=== PATIENT | female | born 1950 | race Caucasian/White ===

== ENCOUNTER 2018-09-17 20:39 | Inpatient (IN) | payer MEDICARE, OTHER ==
[~2018-09-17] VITALS: Ht 157.5 cm; Wt 117.5 kg
--- NOTE | 2018-09-17 20:50 | NUR ---
BIB [facility] AAOX4. NAD NOTED AT THE TIME, BREATHING EVEN AND UNLABORED. C/O CHEST PAIN ON LEFT REPORTED THAT SHE FELT RADIATION ON HER JAW, 3/10. REPORTS OF FEELING LIGHTHEADED AND DIZZY. TINGLING IN THE FINGERS AND SOB AT THE TIME OF ONSET. RA REPORTS THAT PT'S HR WAS 220'S GIVEN ADENOSINE 6MG AND ANOTHER ADENOSINE 12MG. REPORTS NOTING DROP BY 20 PTS BUT WENT BACK UP TO 220'S. PT WAS RECEIVED HOOKED ON MONITOR AND HR IN THE 160'S. MD AT BEDSIDE. EKG DONE WITH RESULT OF SINUS TACH IN 110'S. WILL CNTINUE TO MONITOR
[2018-09-17] MEDS ORDERED: IV NS 0.9% 500 ML BAG IV ONE (21:00)
--- NOTE | 2018-09-17 21:00 | NUR ---
LAB AT BEDSIDE.
[2018-09-17 21:21] LABS: BASOPHILS # (AUTO) 0.1 /CMM (0.0-0.2); BASOPHILS % (AUTO) 1.5 % (0.0-2.0); EOSINOPHILS % (AUTO) 3.6 % (0.0-6.0); HEMATOCRIT 44 % (33-45); HEMOGLOBIN 14.7 g/dL (11.5-14.8); LYMPHOCYTES # (AUTO) 2.1 /CMM (0.8-4.8); LYMPHOCYTES % (AUTO) 34.9 % (20.0-44.0); MEAN CORPUSCULAR HGB CONC 34 g/dl (31.0-36.0); MEAN CORPUSCULAR VOLUME 88 fL (82-100); MONOCYTES # (AUTO) 0.3 /CMM (0.1-1.30); MONOCYTES % (AUTO) 4.9 % (2.0-12.0); NEUTROPHILS # (AUTO) 3.3 /CMM (1.8-8.9); NEUTROPHILS % (AUTO) 55.1 % (43.0-81.0); PLATELET COUNT (AUTO) 245 /CMM (150-450); RED BLOOD CELL COUNT(AUTO) 4.99 MIL/uL (4.0-5.2); WHITE BLOOD COUNT (AUTO) 5.9 K/uL (4.3-11.0)
[2018-09-17 21:29] LABS: CALCIUM, SERUM 9.1 mg/dL (8.5-10.1); CARBON DIOXIDE 24 mmol/L (21-32); CHLORIDE 105 mmol/L (98-107); GLUCOSE 152 mg/dL (74-106); POTASSIUM 3.8 mmol/L (3.5-5.1); SODIUM SERUM 142 mmol/L (136-145); UREA NITROGEN, BLOOD 13 mg/dL (7-18)
[2018-09-17 21:39] LABS: D-DIMER 0.33 mg/L(FEU (0.17-0.50)
[2018-09-17 21:41] LABS: ALANINE AMINOTRANSFERASE 23 U/L (12-78); ALBUMIN 3.9 g/dL (3.4-5.0); ALKALINE PHOSPHATASE 67 U/L (46-116); ASPARTATE AMINOTRANSFERASE 17 U/L (15-37); B-TYPE NATRIURETIC PEPTIDE 75 PG/ML (0-125); BILIRUBIN,TOTAL 0.4 mg/dL (0.2-1.0)
--- NOTE | 2018-09-17 21:52 | NUR ---
CALLED NURSING SUP FOR TELE BED
--- NOTE | 2018-09-17 21:52 | NUR ---
pt in bed aaox4. pt is talking with her daugther at bedside
[2018-09-17] MEDS ORDERED: AZITHROMYCIN 500 MG in IV D5W 250 ML IV ONE (22:00)
[2018-09-17] MEDS ORDERED: IV NS 0.9% 1,000 ML BAG IV ONE (22:00)
[2018-09-17] MEDS ORDERED: CEFTRIAXONE 1GM BAG (ER ONLY) 1 GM/50 ML PIGGYBACK IV ONE (22:00)
[2018-09-17] MEDS ORDERED: IV NS 0.9% 1,000 ML IV PRN (22:09)
[2018-09-17] MEDS ORDERED: CEFTRIAXONE 1GM BAG (ER ONLY) 50 ML IV ONE (22:21)
[2018-09-17] MEDS ORDERED: ACETAMINOPHEN 325 MG TABLET PO PRN (22:30)
[2018-09-17] MEDS ORDERED: Z GUARD REMEDY 2 OZ OINT TP PRN (22:30)
[2018-09-17] MEDS ORDERED: HYDROCODONE/APAP 5/325MG 1 EACH TABLET PO PRN (22:30)
[2018-09-17] MEDS ORDERED: ONDANSETRON HCL/PF 4 MG/2 ML VIAL IVP PRN (22:30)
[2018-09-17] MEDS ORDERED: MAGNESIUM HYDROXIDE 30 ML UDC PO PRN (22:30)
[2018-09-17] MEDS ORDERED: MAG HYDROX/AL HYDROX/SIMETH 30 ML UDC PO PRN (22:30)
[2018-09-17] MEDS ORDERED: ZOLPIDEM TARTRATE 5 MG TABLET PO PRN (22:30)
--- NOTE | 2018-09-17 22:30 | NUR ---
LAB AT BEDSIDE FOR BLOOD CULTURE
--- NOTE | 2018-09-17 22:35 | NUR ---
ROCEPHIN 1 GM VIA IV WAS STARTED ON R AC 18G
--- NOTE | 2018-09-17 22:39 | NUR ---
PT AMBULATED TO BATHROOM WITHOUT ANY ASSISTANCE
--- NOTE | 2018-09-17 22:44 | NUR ---
BED ASSIGNMENT 304-1
--- NOTE | 2018-09-17 23:00 | NUR ---
REPORT GIVEN TO OLI SANCHEZ PT IS GOING TO ROOM 324-2 INSTEAD OF 304.
[2018-09-17] MEDS ORDERED: AZITHROMYCIN 500 MG VIAL ONE (23:01)
[2018-09-17] MEDS ORDERED: WATER FOR INJECTION,STERILE 10 ML ONE (23:03)
--- NOTE | 2018-09-17 23:10 | NUR ---
AZITHROMYCIN 500MG IV STARTED ON R AC 18G END TIME 9
--- NOTE | 2018-09-17 23:20 | NUR ---
PT BEING TRANSPORTED TO UNIT WITH ACLS PROTOCOL WITH RN AND EMT
[2018-09-17] MEDS ORDERED: ALBUTEROL FS 2.5 MG/0.5 ML VIAL.NEB NEB PRN (23:30)
[2018-09-17] MEDS ORDERED: IPRATROPIUM NEB FS 0.5 MG/2.5 ML AMPUL.NEB NEB PRN (23:30)
[2018-09-17] MEDS: AZITHROMYCIN 500 MG in IV D5W 250 ML IV ONE (23:30)
[2018-09-17] MEDS: CEFTRIAXONE 1 G in IV D5W 50 ML IV ONE (23:30)
--- NOTE | 2018-09-17 23:30 | NUR ---
PERFORATOR LOADER OPENING NOTES: RECEIVED PT ON ROOM AIR AND IS TOLERATING WELL. NO SOB NOTED. NO S/S OF DISTRESS. PT HAS IV ON R AC #18G AND IS BEING INFUSED WITH AZYTHROMYCIN AT 250ML/HR. PT TO BE PLACED ON TELE BOX. DTR AT BEDSIDE. NO CHEST PAIN. BED KEPT IN LOW, LOCKED POSITION, AND SIDE RAILS X 2UP. INFORMED PT THAT SHE HAS A CARDIO CONSULT FOR TOMORROW. WILL CONTINUE TO MONITOR PT.
--- NOTE | 2018-09-17 23:52 | NUR ---
HEALTH COMMUNICATIONS SPECIALIST NOTES: PER DIVERSIFIED CROPS FARMWORKER JEREMI MONTERROSO 1G WAS GIVEN DOWNSTAIRS IN ER. WILL NON-ADMIN TONIGHT'S DOSE.
[2018-09-18] VITALS: BP 140/74
[2018-09-18] MEDS: methylPREDNISolone SOD SUCC 125 MG/2ML VIAL IV SCH ×3 (00:04→21:22)
[2018-09-18] MEDS: CEFTRIAXONE 1 G in IV D5W 50 ML IV ONE (00:14)
[2018-09-18] MEDS: AZITHROMYCIN 500 MG in IV D5W 250 ML IV ONE (00:14)
--- NOTE | 2018-09-18 00:14 | NUR ---
BUFFER COPPER NOTES: ROCEPHIN 1G WAS GIVEN IN ER. AZITHROMAX NON-ADMIN IT IS RUNNING RIGHT NOW AT 250ML/HR AND WAS STARTED IN ER.
[2018-09-18] MEDS ORDERED: ASPI-992 PO (00:56)
[2018-09-18 02:53] LABS: BASOPHILS # (AUTO) 0.1 /CMM (0.0-0.2); EOSINOPHILS % (AUTO) 1.8 % (0.0-6.0); HEMATOCRIT 42 % (33-45); HEMOGLOBIN 13.9 g/dL (11.5-14.8); LYMPHOCYTES # (AUTO) 1.4 /CMM (0.8-4.8); LYMPHOCYTES % (AUTO) 20.1 % (20.0-44.0); MEAN CORPUSCULAR HGB CONC 34 g/dl (31.0-36.0); MEAN CORPUSCULAR VOLUME 87 fL (82-100); MONOCYTES # (AUTO) 0.2 /CMM (0.1-1.30); MONOCYTES % (AUTO) 3.3 % (2.0-12.0); NEUTROPHILS % (AUTO) 73.8 % (43.0-81.0); PLATELET COUNT (AUTO) 293 /CMM (150-450); WHITE BLOOD COUNT (AUTO) 6.8 K/uL (4.3-11.0)
[2018-09-18 03:05] LABS: CALCIUM, SERUM 8.7 mg/dL (8.5-10.1); CREATININE 0.9 mg/dL (0.6-1.3); PHOSPHORUS 2.7 mg/dL (2.5-4.9); POTASSIUM 4.6 mmol/L (3.5-5.1)
--- NOTE | 2018-09-18 03:14 | NUR ---
PT ATB ROCEPHIN AND AZITHROMYCIN WAS NOTED NON ADMIN IN EMAR BUT MEDICATION WAS GEIVEN AND STARTED IN ER. PRIOR TO PT GOING TO UNIT. UNABLE TO NAEEM ADMINISTERED ON EMAR D/T NAEEM NON ADMIN ON UNIT BY RN.
[2018-09-18 03:15] LABS: THYROID STIMULATING HORMONE 1.528 uIU/mL (0.358-3.74)
--- NOTE | 2018-09-18 03:46 | NUR ---
EMERGENCY DEPARTMENT RN NOTES: INFORMED DR. MONIKA Fang ABOUT REPEAT LACTIC ACID OF 2.0 ; NO NEW ORDERS AT THIS TIME.
[2018-09-18 04:00] VITALS: BP 151/80
--- NOTE | 2018-09-18 06:33 | NUR ---
ENRICHMENT DIRECTOR CLOSING NOTES: ALL NEEDS WERE ATTENDED AND ANTICIPATED FOR. PT ON ROOM AIR AND TOLERATING WELL. NO SOB NOTED. NO S/S OF DISTRESS. PT REMAINS IN BED AND IS SITTING UP. PT ON TELE BOX AND READING SHOWS SR 70S. PT HAS IV ON R AC #18G AND IS BEING INFUSED WITH IV NS AT 100ML/HR. BED KEPT IN LOW, LOCKED POSITION, AND SIDE RAILS X 2UP. WILL ENDORSE TO AM NURSE FOR TOMY.
--- NOTE | 2018-09-18 07:20 | NUR ---
STITCH WELDER OPENING NOTE RECEIVED PT IN BED, ALERT AND ORIENTED X4. DENIES CHEST PAIN, SOB, N/V, BREATHING IS EVEN AND UNLABORED ON ROOM AIR. NO ACUTE DISTRESS NOTED, PT IS ON MECHANICAL INSULATOR WITH SINUS RHYTHM, HR 78 AT THIS TIME. RIGHT AC #18G IS INFUSING NS @ 100ML/HR WITHOUT REDNESS OR SWELLING. ALL NEEDS ATTENDED TO. BED IS LOCKED AND IN LOWEST POSITION, SIDE RAILS UP X2, CALL LIGHT AND POSSESSIONS WITHIN REACH.
[2018-09-18 08:00] VITALS: BP 146/72
[2018-09-18] MEDS ORDERED: LANS30CA54 PO (08:13)
[2018-09-18] MEDS: ATORVASTATIN 10 MG TABLET PO SCH (09:00)
[2018-09-18] MEDS: ASPIRIN 81 MG TAB.CHEW PO SCH (09:15)
--- NOTE | 2018-09-18 10:30 | NUR ---
GROVE SUPERINTENDENT NOTE DR. REDDY AT THE BEDSIDE FOR PT ASSESSMENT. INFORMED PT THAT SHE IS NOT CLEARED FOR D/C YET AND EXPLAINED RISKS AND BENEFITS OF LEAVING AT THIS TIME. PT AGREEABLE TO CONTINUING HOSPITAL STAY FOR NOW.
--- NOTE | 2018-09-18 11:45 | NUR ---
METAL SORTER NOTE RIGHT AC PERIPHERAL IV FOUND TO BE LEAKING. REMOVED WITH CATHETER TIP INTACT. PT REQUESTING FOR IV INSERTION "LATER TODAY AFTER MY DAUGHTER IS DONE VISITING".
[2018-09-18 16:00] VITALS: BP 129/68
--- NOTE | 2018-09-18 16:00 | NUR ---
MS RN NOTE NEW IV INSERTED AT THE LEFT HAND #22G AND IS PATENT, CLEAN, DRY AND INTACT. PT TOLERATED PROCEDURE WELL
--- NOTE | 2018-09-18 18:53 | NUR ---
MS RN CLOSING NOTE PT IN BED, ALERT AND ORIENTED X4. DENIES CHEST PAIN, SOB, N/V, BREATHING IS EVEN AND UNLABORED ON ROOM AIR. NO ACUTE DISTRESS NOTED. LEFT HAND #22G IV IS INFUSING NS @ 100ML/HR WITHOUT REDNESS OR SWELLING. ASSISTED WITH ADLS, ALL NEEDS ATTENDED TO. BED IS LOCKED AND IN LOWEST POSITION, SIDE RAILS UP X2, CALL LIGHT AND POSSESSIONS WITHIN REACH. WILL ENDORSE TO PROFILE MILL OPERATOR TAPE CONTROL NURSE FOR CONTINUITY OF CARE.
--- NOTE | 2018-09-18 19:41 | NUR ---
MS RN OPENING NOTES: RECEIVED PT ON ROOM AIR AND IS TOLERATING WELL. PT HAS IV ON L H AND #22G AND IS PATENT AND INTACT. NO SOB NOTED. NO S/S OF DISTRESS. 3 FAMILY MEMBERS AT BEDSIDE. PT TO BE CONNECTED BACK TO IVF AT IV NS AT 100ML/HR. BED KEPT IN LOW, LOCKED POSITION, AD SIDE RAISL X 2UP. WILL CONTINUE TO MONITOR PT.
[2018-09-18 20:00] VITALS: BP 136/69
[2018-09-18] MEDS ORDERED: CEFTRIAXONE 1 G in IV D5W 50 ML IV SCH (21:00)
[2018-09-18] MEDS ORDERED: AZITHROMYCIN 500 MG in IV D5W 250 ML IV SCH (22:00)
--- NOTE | 2018-09-18 22:05 | NUR ---
MS RN NOTES: INFORMED DR. MONIKA Fang THAT PT TAKES PREVACID FOR HER ACID REFLUX BUT DOES NOT KNOW WHAT DOSE. GOT ORDER FOR PROTONIX 40MG PO. Addendum: 09/18/18 at 2233 by JT SKINNER RN PT SAYS SHE TAKES IT AT NIGHT WELL, USUALLY BEFORE DINNER WHERE IT HELPS HER.
[2018-09-18] MEDS ORDERED: PANTOPRAZOLE 40 MG TABLET.DR PO SCH (22:30)
--- NOTE | 2018-09-19 00:41 | NUR ---
MS RN NOTES: PT WOULD LIKE TO BE RELIEVED FROM BEING CONNECTED TO IV FLUIDS FOR NOW SHE IS CONSTANTLY GOING UP TO THE BATHROOM AND WOULD LIKE TO REST AND GET SOME SLEEP TONIGHT SHE HAS NOT BEEN ABLE TO SINCE ADMISSION. INFORMED HER THAT I WILL HAVE TO RECONNECT HER BACK IN THE MORNING. ALSO, PT IS DRINKING ENOUGH WATER. PT HAS ALREADY DRANK THROUGH 3 PITCHERS OF WATER.
--- NOTE | 2018-09-19 06:43 | NUR ---
MS RN CLOSING NOTES: ALL NEEDS WERE ATTENDED AND ANTICIPATED FOR. PT SITTING UP IN BED AND IS WATCHING TELEVISION. NO SOB NOTED. NO S/S OF DISTRESS. PT HAS IV ON L HAND IS BEING INFUSED WITH IV NS AT 100ML/HR. BED KEPT IN LOW, LOCKED POSITION, AND SIDE RAILS X 2UP. WILL ENDORSE TO AM NURSE FOR TOMY.
[2018-09-19 07:16] LABS: CALCIUM, SERUM 8.9 mg/dL (8.5-10.1); CREATININE 0.7 mg/dL (0.6-1.3); POTASSIUM 4.4 mmol/L (3.5-5.1)
[2018-09-19 07:18] LABS: BASOPHILS % (AUTO) 0.2 % (0.0-2.0); HEMATOCRIT 40 % (33-45); HEMOGLOBIN 13.6 g/dL (11.5-14.8); LYMPHOCYTES # (AUTO) 1.2 /CMM (0.8-4.8); LYMPHOCYTES % (AUTO) 16.7 % (20.0-44.0); MEAN CORPUSCULAR HGB CONC 34 g/dl (31.0-36.0); MEAN CORPUSCULAR VOLUME 86 fL (82-100); MONOCYTES # (AUTO) 0.3 /CMM (0.1-1.30); MONOCYTES % (AUTO) 3.7 % (2.0-12.0); NEUTROPHILS # (AUTO) 5.7 /CMM (1.8-8.9); NEUTROPHILS % (AUTO) 79.4 % (43.0-81.0); PLATELET COUNT (AUTO) 318 /CMM (150-450); RED BLOOD CELL COUNT(AUTO) 4.69 MIL/uL (4.0-5.2); WHITE BLOOD COUNT (AUTO) 7.2 K/uL (4.3-11.0)
--- NOTE | 2018-09-19 07:30 | NUR ---
MS RN OPENING NOTE RECEIVED PT IN BED, ALERT AND ORIENTED X4. DENIES CHEST PAIN, SOB, N/V, BREATHING IS EVEN AND UNLABORED ON ROOM AIR. NO ACUTE DISTRESS NOTED AT THIS TIME. LEFT HAND #22G IS INFUSING NS @ 100ML/HR WITHOUT REDNESS OR SWELLING. ALL NEEDS ATTENDED TO. BED IS LOCKED AND IN LOWEST POSITION, SIDE RAILS UP X2, CALL LIGHT AND POSSESSIONS WITHIN REACH.
[2018-09-19 08:00] VITALS: BP 142/68
[2018-09-19] MEDS ORDERED: AZIT250T13 PO (08:16)
[2018-09-19] MEDS ORDERED: ATOR10TA PO (08:16)
[2018-09-19] MEDS ORDERED: ASPI-1169 PO (08:16)
[2018-09-19] MEDS: ATORVASTATIN 10 MG TABLET PO SCH (08:47)
[2018-09-19] MEDS: methylPREDNISolone SOD SUCC 125 MG/2ML VIAL IV SCH (08:47)
[2018-09-19] MEDS: ASPIRIN 81 MG TAB.CHEW PO SCH (08:47)
--- NOTE | 2018-09-19 10:37 | NUR ---
MS QUEEN'S COUNSEL NOTE PT DISCHARGED HOME VIA PRIVATE CAR, ACCOMPANIED BY DAUGHTER NURY IN MEDICALLY STABLE CONDITION. PT IS ALERT AND ORIENTED X4, DENIES CHEST PAIN, SOB, N/V, BREATHING IS EVEN AND UNLABORED ON ROOM AIR, SKIN IS INTACT. LEFT HAND PERIPHERAL IV REMOVED WITH CATHETER TIP INTACT. ALL BELONGINGS ACCOUNTED FOR AND BELONGINGS LIST SIGNED AND PLACED IN CHART. DISCHARGE EDUCATION AND PAPERWORK PROVIDED PER PROTOCOL. DISCUSSED DR RECOMMENDATIONS TO FOLLOW UP WITH PRIMARY CARE PROVIDER WITHIN 1 WEEK, TO FOLLOW UP WITH PULMONARY DIRECTED BY PCP FOR OUTPATIENT PULMONARY TEST. PROVIDED SMOKING CESSATION EDUCATION. INFORMED PT TO CALL 911 OR RETURN TO THE NEAREST ER FOR CHEST PAIN, SOB, BLOOD IN EMESIS, URINE, STOOL, ABDOMINAL DISTENTION, UNILATERAL CALF SWELLING/REDNESS/TENDERNESS, OR REOCCURRENCE OF CHIEF COMPLAINT. PROVIDED PRESCRIPTION AND EDUCATION TO TAKE MEDICATIONS DIRECTED. PATIENT VERBALIZED UNDERSTANDING AND AGREEMENT. THE NURSE ACCOMPANIED THE PT TO THE MAIN LOBBY WITHOUT INCIDENT.
[2018-09-19] MEDS ORDERED: PANTOPRAZOLE 40 MG TABLET.DR PO SCH (16:00)
== END 2018-09-19 10:40 | disposition home or self-care (01) | DRG 308 ==
LOC: ER 20:41 → TELE 22:46 → MED 09-18 09:15
PROVIDERS: ATTEND Family Medicine
DX: I47.1 Supraventricular tachycardia (principal); J15.9 Unspecified bacterial pneumonia; J44.1 Chronic obstructive pulmonary disease with (acute) exacerbation; Z68.42 Body mass index [BMI] 45.0-49.9, adult; E87.2 Acidosis; J44.0 Chronic obstructive pulmonary disease with (acute) lower respiratory infection; F17.210 Nicotine dependence, cigarettes, uncomplicated; E66.9 Obesity, unspecified; R73.9 Hyperglycemia, unspecified; I51.7 Cardiomegaly; G47.33 Obstructive sleep apnea (adult) (pediatric); R91.8 Other nonspecific abnormal finding of lung field
CPT/HCPCS: 36415; 71045-TC; 80048-TC; 80061-TC; 80076-TC; 83605-TC; 83735-TC; 83880; 84100-TC; 84443-TC; 84484-TC; 85025-TC; 85378-TC; 85730-TC; 87040-TC; 87081-TC; 93307-TC; G0378; J0456; J0696; J2930; J7030; J7040; J7060